=== PATIENT | female | born 1985 | race Caucasian/White ===

== ENCOUNTER 2020-06-06 16:04 | Outpatient (REF) | payer MEDICAID, SELFPAY ==
--- NOTE | 2020-06-06 14:20 | PAPFT_PTH ---
PATIENT: TJ OSEGUERA LOC: [facility] U#:[id number] AGE/SX: 35/F ROOM: RE06/06/[address]: Janey Maza APRN : 1985 BED: DIS: 06/06/2020 SPEC #: [id number] RECD: 06/07/20 12:51 STATUS: HILARY REAnthony #: [id number] TRAE: 06/06/20 14:[address]: Janey Maza DEPT: [facility] Cytology RECD BY: Mariana Costello Tissues: 1 - CX/ENDOCX FOR PAP SMEARS Procedures: PAP THIN PREP/UVM Screening HPV DNA PROBE Comments: [id number]
== END 2020-06-06 16:24 ==
LOC: LBN 16:04
DX: Z12.4 Encounter for screening for malignant neoplasm of cervix (principal); Z11.51 Encounter for screening for human papillomavirus (HPV)
CPT/HCPCS: 88142; 87624

== ENCOUNTER 2020-07-11 09:05 | Outpatient (CLI) | payer MEDICAID, SELFPAY ==
--- NOTE | 2020-07-11 08:45 | DI.RAD_ITS ---
EXAM: XR KNEE RT 3V AP,LAT,GRAYSON CLINICAL HISTORY: right knee pain M25.561. TECHNIQUE: 2D digital imaging was performed. COMPARISON: No exams were available for comparison FINDINGS: Mild degenerative changes are seen in the knee with periarticular spurring particularly at the latera l femoral tibial joint. No acute fracture or dislocation. Moderate suprapatellar joint effusion. S oft tissues otherwise unremarkable. IMPRESSION: 1. No acute fracture or dislocation. 2. Joint effusion. DATA REPOSITORY: RADIATION DOSE DELIVERED:
== END 2020-07-11 09:25 ==
PROVIDERS: Visit Provider Nurse Practitioner Family
DX: M25.461 Effusion, right knee (principal); M25.561 Pain in right knee
CPT/HCPCS: 73562